=== PATIENT | female | born 1940 | race Two or more races ===

== ENCOUNTER 2016-12-08 20:05 | Emergency (ER) | payer MEDICARE ==
[~2016-12-08] VITALS: Ht 157.5 cm; Wt 63.5 kg
[~2016-12-08 20:05] MED LIST: CHOL10003 PO; CIPR500T94 PO; CYAN10005 PO; HYDR-971 PO; HYDR1TAB12 PO; IBUP200T58 PO; MULT-208 PO; ONDA4TAB7 PO; OXYC-323 PO; PANT40TA5 PO; POTA20TA4 PO; TAMS0.4C97 PO; VITA400C6 PO
[2016-12-08 21:01] LABS: BASO # 0.1 x10^3/uL (0.0-0.2); BASO % 1 % (0-3); EOS % 3 % (0-3); HEMATOCRIT 37.7 % (36.0-47.0); HEMOGLOBIN 12.1 g/dL (12.0-15.5); LYMPH # 2.7 x10^3/uL (1.0-4.8); LYMPH % 40 % (24-48); MEAN CORPUSCULAR HEMOGLOBIN 27 pg (25-35); MEAN CORPUSCULAR HGB CONC 32 g/dL (31-37); MEAN CORPUSCULAR VOLUME 83 fL (79-100); MONO % 8 % (0-9); NEUT % 48 % (31-73); PLATELET COUNT 234 x10^3/uL (140-400); RED BLOOD COUNT 4.55 x10^6/uL (3.50-5.40); RED CELL DISTRIBUTION WIDTH 17.6 % (11.5-14.5); WHITE BLOOD COUNT 6.7 x10^3/uL (4.0-11.0)
[2016-12-08 21:02] LABS: BILIRUBIN,URINE NEGATIVE (NEG); GLUCOSE,URINE NEGATIVE (NEG); NITRITE,URINE NEGATIVE (NEG); PROTEIN,URINE NEGATIVE (NEG-TRACE); UROBILINOGEN,URINE 0.2 mg/dL (0.2 mg/dL)
[2016-12-08 21:09] LABS: BACTERIA,URINE 0 /HPF (0-FEW); RBC,URINE OCC /HPF (0-2); SQUAMOUS EPITHELIAL CELL,UR OCC /LPF
[2016-12-08 21:15] LABS: CALCIUM 9.6 mg/dL (8.5-10.1); CREATININE 0.7 mg/dL (0.6-1.0); GFR 81.6; POTASSIUM 3.5 mmol/L (3.5-5.1)
[2016-12-08 21:21] LABS: ALBUMIN 3.8 g/dL (3.4-5.0); ALBUMIN/GLOBULIN RATIO 0.9 (1.0-1.7); TOTAL BILIRUBIN 0.2 mg/dL (0.2-1.0); TOTAL PROTEIN 8.1 g/dL (6.4-8.2)
[2016-12-08] MEDS ORDERED: IV NORMAL SALINE 1000ML BAG 1,000 ML IV SCH (21:30)
[2016-12-08] MEDS ORDERED: MORPHINE SULFATE 10 MG/ML VIAL. IV ONE (21:30)
[2016-12-08] MEDS ORDERED: ONDANSETRON PF 4 MG/2 ML VIAL. IV ONE (21:30)
--- NOTE | 2016-12-08 23:56 | RAD ---
Examination: CT of the abdomen pelvis without contrast. HISTORY History of right flank pain. COMPARISON 10/03/[address] images of the abdomen pelvis were performed without contrast. Coronal sagittal reformats were performed FINDINGS Minimal bibasilar lung atelectasis. No evidence of free air identified in the abdomen. The evaluation of the solid organs is limited due to lack of IV contrast. The evaluation the bowel is limited due to lack of oral contrast. The visualized non contrasted liver, spleen, adrenals grossly appears unremarkable. Cholecystectomy clips are identified. The stomach is mildly distended. Normal appearing appendix. Feces and gas noted in the colon. Minimal wall thickening of the sigmoid colon with minimal surrounding fat stranding. Multiple colonic diverticula identified. The urinary bladder is moderately distended. No evidence of intrauterine system calculi identified. Mild prominent appearing bilateral extrarenal pelvis. There is mild dilated appearing left renal calices which is similar to prior exam. Moderate aortic atherosclerosis. Moderate degenerative changes identified in the thoracolumbar spine. The calices of the left kidney appears mildly dilated with no evidence of obstructing calculus. IMPRESSION - No evidence of intrarenal collecting system calculi or hydronephrosis identified. Mild dilated appearing left renal calices grossly appears similar to prior exam. - Cholecystectomy changes. - Multiple colonic diverticula. There is mild thickened appearance of the wall of the sigmoid colon could be due to nondistention or mild colitis. Electronically signed by: Shiva Iraheta (Dec 08, 2016 23:55:11)
[2016-12-09] MEDS ORDERED: CEPH-264 PO (00:17)
[2016-12-09] MEDS ORDERED: HYDR-2678 PO (00:17)
--- NOTE | 2016-12-09 00:17 | PHYS DOC ---
Past Medical History Past Medical History: Arthritis, GERD, Kidney Stone Past Surgical History: Appendectomy, Cholecystectomy, Tonsillectomy, Other Additional Past Surgical Histo: exploratory lap, wisdom teeth, L breast biopsy , BI LAT 1ST RIB REMOVAL Alcohol Use: None Drug Use: None Adult General Chief Complaint Chief Complaint: FLANK PAIN HPI HPI Patient is a 76 year old female who presents to the ER today complaining of pain to her left flank region. Patient reports that she had kidney stones in the past however this pain feels different than her kidney stone discomfort. Patient denies any history of hypertension diabetes liver or lung problems. Patient reports that she had her gallbladder and appendix taken out in the past. Patient has any fevers shaking chills nausea vomiting diarrhea. Patient reports she does have slight dysuria but no frequency or urgency. Patient has hematuria chest pain or bowel pain. Patient denies any tobacco alcohol or drugs. Patient reports that she's been tolerating by mouth's well. Patient denies any melena or bright red blood per rectum. Patient denies any exacerbating or relieving factors to this pain. Patient reports the pain is colicky in nature. Patient's physical exam is significant for tenderness to her right lateral flank area. Patient has no evidence of retroperitonitis. Patient's abdomen is soft nondistended no rebound or guarding. Patient does not exhibit any signs or symptoms consistent with an acute surgical abdomen. Patient has no Jones sign. Patient has no tenderness at McBurney's point. He was comfortable in bed. Patient was given analgesia in the ED and feels significantly improved. Patient' s chest x-ray did not reveal any infiltrates or effusions. Patient's CT scan was unremarkable for any stones. Patient's UA was positive for 5-10 WBCs. It's unclear if this is the etiology of her discomfort however given the pain that she is having and the white cells in her urine I think it prudent to initiate antibiotic therapy at this point. Patient was given Rocephin IV in the ED as well as a prescription for Keflex to take for 10 days and is to follow-up with her primary care physician for reevaluation. Patient's heart rate in the ER is running between 65-75. Patient's symptomatology is not consistent with TAD, PE, pneumonia, DE, sepsis, peritonitis. Review of Systems Review of Systems Constitutional: Denies fever or chills [] Eyes: Denies change in visual acuity, redness, or eye pain [] All other review of systems are negative except as documented in the history of present illness portion Current Medications Current Medications Current Medications Medications (Trade) Dose Ordered Sig/Nabila Start Time Stop Time Status Last Admin Dose Admin Morphine Sulfate 5 mg 1X ONCE 12/08/16 21:30 12/08/16 21:31 DC 12/08/16 21:09 5 MG Ondansetron HCl (Zofran) 4 mg 1X ONCE 12/08/16 21:30 12/08/16 21:31 DC 12/08/16 21:08 4 MG Sodium Chloride (Iv Sodium Chloride 0.9% 1000ml Bag) 1,000 ml @ 1,000 mls/hr Q1H 12/08/16 21:30 12/08/16 22:29 DC 12/08/16 21:07 1,000 MLS/HR Allergies Allergies Allergies Coded Allergies Type Severity Reaction Last Updated Verified sulfamethizole Allergy Severe Anaphylaxis 08/02/16 Yes Influenza Virus Vaccines Allergy Intermediate 09/20/16 Yes Iodinated Contrast Media - Oral and Allergy Intermediate soa large infiltrate 08/02/16 Yes Sulfa (Sulfonamide Antibiotics) Allergy Intermediate Rash 09/20/16 Yes hydromorphone Adverse Reaction Intermediate Nausea, Flushed, diaphoretic No influenza virus vaccine, specific Adverse Reaction Intermediate 08/02/16 Yes Physical Exam Physical Exam Constitutional: Well developed, well nourished, no acute distress, non-toxic appearance. [] HENT: Normocephalic, atraumatic, bilateral external ears normal, oropharynx moist, no oral exudates, nose normal. [] Eyes: PERRLA, EOMI, conjunctiva normal, no discharge. [] Neck: Normal range of motion, no tenderness, supple, no stridor. [] Cardiovascular:Heart rate regular rhythm, no murmur [] Lungs & Thorax: Bilateral breath sounds clear to auscultation [] Abdomen: Bowel sounds normal, soft, see above no masses, no pulsatile masses. [ ] Skin: Warm, dry, no erythema, no rash. [] Back: No tenderness, no CVA tenderness. [] Extremities: No tenderness, no cyanosis, no clubbing, ROM intact, no edema. [] Neurologic: Alert and oriented X 3, normal motor function, normal sensory function, no focal deficits noted. [] Psychologic: Affect normal, judgement normal, mood normal. [] Current Patient Data Vital Signs Vital Signs Date Time Temp Pulse Resp B/P Pulse Ox O2 Delivery O2 Flow Rate FiO2 12/08/16 21:09 20 12/08/16 20:45 98.3 101 153/79 98 Room Air 98.3 Lab Values Laboratory Tests Test 12/08/16 20:29 12/08/16 20:51 Urine Collection Type Unknown Urine Color Yellow Urine Clarity Clear Urine pH 6.0 Urine Specific [place] 1.015 Urine Protein Negativemg/dL (NEG-TRACE) Urine Glucose (UA) Negativemg/dL (NEG) Urine Ketones (Stick) Negativemg/dL (NEG) Urine Blood Negative (NEG) Urine Nitrite Negative (NEG) Urine Bilirubin Negative (NEG) Urine Urobilinogen Dipstick 0.2mg/dL (0.2 mg/dL) Urine Leukocyte Esterase Trace (NEG) Urine RBC Occ/HPF (0-2) Urine WBC 5-10/HPF (0-4) Urine Squamous Epithelial Cells Occ/LPF Urine Bacteria 0/HPF (0-FEW) Urine Mucus Mod/LPF White Blood Count 6.7x10^3/uL (4.0-11.0) Red Blood Count 4.55x10^6/uL (3.50-5.40) Hemoglobin 12.1g/dL (12.0-15.5) Hematocrit 37.7% (36.0-47.0) Mean Corpuscular Volume 83fL (79-100) Mean Corpuscular Hemoglobin 27pg (25-35) Mean Corpuscular Hemoglobin Concent 32g/dL (31-37) Red Cell Distribution Width 17.6% (11.5-14.5) H Platelet Count 234x10^3/uL (140-400) Neutrophils (%) (Auto) 48% (31-73) Lymphocytes (%) (Auto) 40% (24-48) Monocytes (%) (Auto) 8% (0-9) Eosinophils (%) (Auto) 3% (0-3) Basophils (%) (Auto) 1% (0-3) Neutrophils # (Auto) 3.2x10^3uL (1.8-7.7) Lymphocytes # (Auto) 2.7x10^3/uL (1.0-4.8) Monocytes # (Auto) 0.5x10^3/uL (0.0-1.1) Eosinophils # (Auto) 0.2x10^3/uL (0.0-0.7) Basophils # (Auto) 0.1x10^3/uL (0.0-0.2) Sodium Level 144mmol/L (136-145) Potassium Level 3.5mmol/L (3.5-5.1) Chloride Level 106mmol/L (98-107) Carbon Dioxide Level 25mmol/L (21-32) Anion Gap 13 (6-14) Blood Urea Nitrogen 17mg/dL (7-20) Creatinine 0.7mg/dL (0.6-1.0) Estimated GFR (Cockcroft-Gault) 81.6 BUN/Creatinine Ratio 24 (6-20) H Glucose Level 134mg/dL (70-99) H Calcium Level 9.6mg/dL (8.5-10.1) Total Bilirubin 0.2mg/dL (0.2-1.0) Aspartate Amino Transferase (AST) 8U/L (15-37) L Alanine Aminotransferase (ALT) 24U/L (14-59) Alkaline Phosphatase 99U/L (46-116) Total Protein 8.1g/dL (6.4-8.2) Albumin 3.8g/dL (3.4-5.0) Albumin/Globulin Ratio 0.9 (1.0-1.7) L Laboratory Tests 12/08/16 20:51 Laboratory Tests 12/08/16 20:51 EKG EKG [] Radiology/Procedures Radiology/Procedures [] Course & Med Decision Making Course & Med Decision Making Pertinent Labs and Imaging studies reviewed. (See chart for details) [] A/P #1 right flank pain. Etiology is unclear however given her positive UA and will initiate therapy for urinary tract infection please see above Dragon Disclaimer Dragon Disclaimer This electronic medical record was generated, in whole or in part, using a voice recognition dictation system. Departure Departure Impression: Primary Impression: Acute pyelonephritis Additional Impression: UTI (urinary tract infection) Disposition: 01 HOME, SELF-CARE Condition: IMPROVED Referrals: BUSHRA RIDER MD (PCP) Patient Instructions: Abdominal Pain (Nonspecific), Urinary Tract Infection Scripts Hydrocodone/Acetaminophen (Lortab 5-325 mg Tablet)1 Each Tablet1 Tab PO PRN Q6HRS PRN PAIN #14 TAB Prov:LAURIE LOZANO MD 12/09/16 Cephalexin (Keflex)500 Mg [id number] Mg PO QID 10 Days Prov:LAURIE LOZANO MD 12/09/16 Problem Qualifiers LAURIE LOZANO MD Dec 09, 2016 00:17
[2016-12-09] MEDS ORDERED: CEFTRIAXONE 1GM IVPB FOR OMNI 50 ML IV ONE ×2 (00:30→01:30)
[2016-12-09 02:00] VITALS: BP 140/84
--- NOTE | 2016-12-09 15:07 | RAD ---
Chest, 2 views, 12/08/2016: History: Right flank pain Comparison is made to a study from 07/08/2014. The heart size and pulmonary vascularity are normal. No pulmonary infiltrates are seen. There is a tiny left upper lobe pulmonary nodule. This was not evident on previous studies, however, that may be due to technical factors. There is no evidence of pleural fluid. Mild spurring is present in the spine. A left shoulder prosthesis has been inserted. Surgical clips are projected over both axillary regions. IMPRESSION: 1. Tiny left upper lobe pulmonary nodule. While this may be a granuloma, follow-up imaging is suggested to exclude a neoplastic etiology. 2. No acute cardiopulmonary abnormality is detected. Note: The findings were called to personnel in the [facility] ER at 3:00 PM on 12/09/2016.
== END 2016-12-09 02:05 | disposition home or self-care (01) ==
LOC: ER 20:05
DX: N10 Acute pyelonephritis (principal); N39.0 Urinary tract infection, site not specified; K21.9 Gastro-esophageal reflux disease without esophagitis; M19.90 Unspecified osteoarthritis, unspecified site; Z87.442 Personal history of urinary calculi; Z88.2 Allergy status to sulfonamides; Z90.49 Acquired absence of other specified parts of digestive tract; Z88.5 Allergy status to narcotic agent; Z88.7 Allergy status to serum and vaccine; Z91.041 Radiographic dye allergy status
CPT/HCPCS: 36415; 71020; 74176; 80053; 81001; 85027; 87086; 96361; 96365; 96366; 96375; 99285; J0690; J2270; J2405; J7030

== ENCOUNTER → 2016-12-17 | Outpatient (CLI) | payer MEDICARE ==
[2016-12-09 02:00] VITALS: BP 140/84
[~2016-12-17] MED LIST changes: +CEPH-264 PO; +HYDR-2678 PO
--- NOTE | 2016-12-17 10:20 | RAD ---
Exam performed: CT chest without contrast. History: Left upper lobe nodule, arm swelling, shortness of air Date of service: 12/17/16. Comparison: 2 views chest from 12/08/16 Technique: Contiguous helical acquisitions are obtained through the chest without IV contrast. Sagittal and coronal reformatted images are obtained and reviewed. Findings: Structures at the thoracic inlet including both lobes of the thyroid gland appear grossly normal. Lack of IV contrast limits evaluation of neck and intrathoracic great vessels, however there is atheromatous calcification of the aorta and mild atelectasis calcification of the coronary arteries. No mediastinal or hilar adenopathy is seen. The heart size is within limits of normal without pericardial effusion. Interrogation of lungs demonstrates no definite infiltrates or nodules. No pleural effusion or pneumothorax is seen. Limited evaluation of the upper abdominal structures is unremarkable. Streak artifacts emanating from left shoulder arthroplasty. Impression: No definite abnormality seen in the CT scan chest. No definite pulmonary nodules or masses identified. PQRS Compliance Statement: One or more of the following individualized dose reduction techniques were utilized for this examination: 1. Automated exposure control 2. Adjustment of the mA and/or kV according to patient size 3. Use of iterative reconstruction technique
== END | disposition home or self-care (01) ==
LOC: CT 07:44
PROVIDERS: ATTEND Nurse Practitioner
DX: R91.1 Solitary pulmonary nodule (principal); J98.11 Atelectasis; I25.10 Atherosclerotic heart disease of native coronary artery without angina pectoris
CPT/HCPCS: 71250

== ENCOUNTER 2017-05-11 12:00 | Emergency (ER) | payer MEDICARE ==
[~2017-05-11] VITALS: Ht 157.5 cm; Wt 66.2 kg
[2017-05-11 12:25] LABS: BILIRUBIN,URINE NEGATIVE (NEG); GLUCOSE,URINE NEGATIVE (NEG); NITRITE,URINE NEGATIVE (NEG); PROTEIN,URINE NEGATIVE (NEG-TRACE); UROBILINOGEN,URINE 0.2 mg/dL (0.2 mg/dL)
[2017-05-11 12:30] LABS: BASO # 0.1 x10^3/uL (0.0-0.2); BASO % 1 % (0-3); EOS % 4 % (0-3); HEMATOCRIT 38.9 % (36.0-47.0); HEMOGLOBIN 12.8 g/dL (12.0-15.5); LYMPH # 2.3 x10^3/uL (1.0-4.8); LYMPH % 29 % (24-48); MEAN CORPUSCULAR HEMOGLOBIN 29 pg (25-35); MEAN CORPUSCULAR HGB CONC 33 g/dL (31-37); MEAN CORPUSCULAR VOLUME 87 fL (79-100); MONO % 9 % (0-9); NEUT % 58 % (31-73); PLATELET COUNT 254 x10^3/uL (140-400); RED BLOOD COUNT 4.46 x10^6/uL (3.50-5.40); RED CELL DISTRIBUTION WIDTH 15.3 % (11.5-14.5); WHITE BLOOD COUNT 8.2 x10^3/uL (4.0-11.0)
[2017-05-11 12:37] LABS: CALCIUM 8.9 mg/dL (8.5-10.1); CREATININE 0.8 mg/dL (0.6-1.0); GFR 69.7; POTASSIUM 3.1 mmol/L (3.5-5.1)
[2017-05-11 12:44] LABS: ALBUMIN 3.5 g/dL (3.4-5.0); DIRECT BILIRUBIN 0.1 mg/dL (0.0-0.2); TOTAL BILIRUBIN 0.5 mg/dL (0.2-1.0); TOTAL PROTEIN 7.9 g/dL (6.4-8.2)
[2017-05-11] MEDS ORDERED: IV NORMAL SALINE 1000ML BAG 1,000 ML IV ONE (12:45)
[2017-05-11 12:49] LABS: BACTERIA,URINE 0 /HPF (0-FEW); RBC,URINE 0 /HPF (0-2); SQUAMOUS EPITHELIAL CELL,UR FEW /LPF
[2017-05-11] MEDS ORDERED: DIPHTH,PERTUSS(ACELL),TET TOX 0.5 ML DISP.SYRIN. VAX IM ONE (13:00)
[2017-05-11] MEDS ORDERED: POTASSIUM CHLO10 MEQ PO (13:20)
[2017-05-11] MEDS ORDERED: LOPE2CAP PO (13:20)
--- NOTE | 2017-05-11 13:20 | PHYS DOC ---
Past Medical History Past Medical History: Arthritis, GERD, Kidney Stone Additional Past Medical Histor: osteoporosis Past Surgical History: Appendectomy, Cholecystectomy, Tonsillectomy, Other Additional Past Surgical Histo: exploratory lap, wisdom teeth, L breast biopsy , BI LAT 1ST RIB REMOVAL Alcohol Use: None Drug Use: None Adult General Chief Complaint Chief Complaint: DIARRHEA HPI HPI 77-year-old female presenting to the emergency department today with pain in the groin and diarrhea for the past 4 days. She reports about 10-11 stools per day that is loose and nonbloody. She denies nausea or vomiting. She has a history of a hernia and reports that she has pain intermittently from her hernia with mild extrusion of the hernia which is easily placed back in the abdominal wall. Currently her pain is 1 out of 10. Location GI tract. Duration intermittent. No alleviating or exacerbating factors present. Review of systems is negative for chest pain shortness of breath syncope headache fevers or chills. All other review of systems is negative unless otherwise noted in history of present illness. ED course: 77-year-old female presenting to the emergency department with watery diarrhea. The patient was afebrile with normal heart rate here in the emergency department. Abdomen was soft and nontender. 1 L of IV fluids was given and blood work was obtained. Low potassium was noted and the patient was discharged home with oral potassium supplementation. I also prescribed loperamide as needed for diarrhea for the next day or 2. Follow-up with doctor in 2-3 days. The patient was then discharged home in stable condition to follow up with their primary care physician over the next 2-3 days. They were to return if their symptoms worsened or if they were concerned for any reason. Face -to-face discharge instructions and return precautions were given. Patient's questions were answered to their satisfaction. Patient is comfortable plan. Review of Systems Review of Systems SEE ABOVE. Current Medications Current Medications Current Medications Medications (Trade) Dose Ordered Sig/Nabila Start Time Stop Time Status Last Admin Dose Admin Diphtheria/ Tetanus/Acell Pertussis (Boostrix) 0.5 ml ONCE ONCE 05/11/17 13:00 05/11/17 13:00 DC Sodium Chloride 1,000 ml @ 1,000 mls/hr 1X ONCE 05/11/17 12:45 05/11/17 13:44 05/11/17 12:41 1,000 MLS/HR Allergies Allergies Allergies Coded Allergies Type Severity Reaction Last Updated Verified sulfamethizole Allergy Severe Anaphylaxis 08/02/16 Yes Influenza Virus Vaccines Allergy Intermediate 09/20/16 Yes Iodinated Contrast- Oral and IV Dye Allergy Intermediate soa large infiltrate 08/02/16 Yes Sulfa (Sulfonamide Antibiotics) Allergy Intermediate Rash 09/20/16 Yes hydromorphone Adverse Reaction Intermediate Nausea, Flushed, diaphoretic No influenza virus vaccine, specific Adverse Reaction Intermediate 08/02/16 Yes Physical Exam Physical Exam Constitutional: Well developed, well nourished, no acute distress, non-toxic appearance. [] HENT: Normocephalic, atraumatic, bilateral external ears normal, oropharynx moist, no oral exudates, nose normal. [] Eyes: PERRLA, EOMI, conjunctiva normal, no discharge. [] Neck: Normal range of motion, no tenderness, supple, no stridor. [] Cardiovascular:Heart rate regular rhythm, no murmur [] Lungs & Thorax: Bilateral breath sounds clear to auscultation [] Abdomen: Bowel sounds normal, soft, no tenderness, no masses, no pulsatile masses. [] Skin: Warm, dry, no erythema, no rash. [] Back: No tenderness, no CVA tenderness. [] Extremities: No tenderness, no cyanosis, no clubbing, ROM intact, no edema. [] Neurologic: Alert and oriented X 3, normal motor function, normal sensory function, no focal deficits noted. [] Psychologic: Affect normal, judgement normal, mood normal. [] Current Patient Data Vital Signs Vital Signs Date Time Temp Pulse Resp B/P (MAP) Pulse Ox O2 Delivery O2 Flow Rate FiO2 05/11/17 12:20 98.9 93 16 148/83 (104) 97 Room Air 98.9 Lab Values Laboratory Tests Test 05/11/17 12:15 05/11/17 12:20 Urine Collection Type Unknown Urine Color Yellow Urine Clarity Clear Urine pH 6.0 Urine Specific [place] 1.015 Urine Protein Negative mg/dL (NEG-TRACE) Urine Glucose (UA) Negative mg/dL (NEG) Urine Ketones (Stick) Negative mg/dL (NEG) Urine Blood Negative (NEG) Urine Nitrite Negative (NEG) Urine Bilirubin Negative (NEG) Urine Urobilinogen Dipstick 0.2 mg/dL (0.2 mg/dL) Urine Leukocyte Esterase Trace (NEG) Urine RBC 0 /HPF (0-2) Urine WBC 5-10 /HPF (0-4) Urine Squamous Epithelial Cells Few /LPF Urine Transitional Epithelial Cells Few /LPF Urine Renal Epithelial Cells Occ /LPF Urine Bacteria 0 /HPF (0-FEW) Urine Mucus Slight /LPF White Blood Count 8.2 x10^3/uL (4.0-11.0) Red Blood Count 4.46 x10^6/uL (3.50-5.40) Hemoglobin 12.8 g/dL (12.0-15.5) Hematocrit 38.9 % (36.0-47.0) Mean Corpuscular Volume 87 fL (79-100) Mean Corpuscular Hemoglobin 29 pg (25-35) Mean Corpuscular Hemoglobin Concent 33 g/dL (31-37) Red Cell Distribution Width 15.3 % (11.5-14.5) H Platelet Count 254 x10^3/uL (140-400) Neutrophils (%) (Auto) 58 % (31-73) Lymphocytes (%) (Auto) 29 % (24-48) Monocytes (%) (Auto) 9 % (0-9) Eosinophils (%) (Auto) 4 % (0-3) H Basophils (%) (Auto) 1 % (0-3) Neutrophils # (Auto) 4.7 x10^3uL (1.8-7.7) Lymphocytes # (Auto) 2.3 x10^3/uL (1.0-4.8) Monocytes # (Auto) 0.7 x10^3/uL (0.0-1.1) Eosinophils # (Auto) 0.3 x10^3/uL (0.0-0.7) Basophils # (Auto) 0.1 x10^3/uL (0.0-0.2) Sodium Level 140 mmol/L (136-145) Potassium Level 3.1 mmol/L (3.5-5.1) L Chloride Level 104 mmol/L (98-107) Carbon Dioxide Level 26 mmol/L (21-32) Anion Gap 10 (6-14) Blood Urea Nitrogen 13 mg/dL (7-20) Creatinine 0.8 mg/dL (0.6-1.0) Estimated GFR (Cockcroft-Gault) 69.7 Glucose Level 146 mg/dL (70-99) H Calcium Level 8.9 mg/dL (8.5-10.1) Total Bilirubin 0.5 mg/dL (0.2-1.0) Direct Bilirubin 0.1 mg/dL (0.0-0.2) Aspartate Amino Transferase (AST) 29 U/L (15-37) Alanine Aminotransferase (ALT) 50 U/L (14-59) Alkaline Phosphatase 90 U/L (46-116) Total Protein 7.9 g/dL (6.4-8.2) Albumin 3.5 g/dL (3.4-5.0) Laboratory Tests 05/11/17 12:20 Laboratory Tests 05/11/17 12:20 EKG EKG [] Radiology/Procedures Radiology/Procedures [] Course & Med Decision Making Course & Med Decision Making Pertinent Labs and Imaging studies reviewed. (See chart for details) [] Dragon Disclaimer Dragon Disclaimer This electronic medical record was generated, in whole or in part, using a voice recognition dictation system. Departure Departure Impression: Primary Impression: Diarrhea Additional Impression: Abdominal pain Disposition: HOME, SELF-CARE Condition: STABLE Referrals: BUSHRA RIDER MD (PCP) Patient Instructions: Diarrhea Additional Instructions: Thank you for allowing us to participate in your care today. Followup with your primary care physician in 3 days if your symptoms do not improve. Call your Primary Doctor tomorrow and inform them of your visit today. If you do not have a primary care provider you can ask for a list of our primary care providers. Return to the emergency department you have any new or concerning findings. This should be evaluated by the primary care physician and any necessary consulting services for continued management within a few days after discharge. Return to emergency room if you have any new or concerning symptoms including but not limited to fever, chills, nausea, vomiting, intractable pain, any new rashes, chest pain, shortness of air, uncontrolled bleeding, difficulty breathing, and/or vision loss. You may have been prescribed medication that can change in your level of thinking and ability to operate machinery. These medications include hydrocodone and Ativan. Also, Benadryl has been known to do this as well. Be sure to check with your pharmacist and ask if the medications you've prescribed can affect your level of consciousness. I recommend not operating heavy machinery or driving while on medication such as these. Scripts Potassium Chloride (POTASSIUM CHLORIDE) 10 Meq Capsule.er 20 MEQ PO DAILY for 5 Days, #5 TAB.SR Prov: BENITA BLACKMAN MD 05/11/17 Loperamide Hcl (LOPERAMIDE) 2 Mg Capsule 2 MG PO PRN BID Y for DIARRHEA, #5 Be careful, this medication may cause you to be tired or drowsy. Do not drive on this medication. It may cause you to be tired as well. Prov: BENITA BLACKMAN MD 05/11/17 Problem Qualifiers BENITA BLACKMAN MD May 11, 2017 13:20
[2017-05-11 14:00] VITALS: BP 146/64
== END 2017-05-11 14:10 | disposition home or self-care (01) ==
LOC: ER 12:00
DX: R19.7 Diarrhea, unspecified (principal); R10.30 Lower abdominal pain, unspecified; M19.90 Unspecified osteoarthritis, unspecified site; K21.9 Gastro-esophageal reflux disease without esophagitis; M81.0 Age-related osteoporosis without current pathological fracture; E87.6 Hypokalemia; Z87.442 Personal history of urinary calculi; Z88.2 Allergy status to sulfonamides; Z90.49 Acquired absence of other specified parts of digestive tract; Z88.7 Allergy status to serum and vaccine; Z91.041 Radiographic dye allergy status; Z88.5 Allergy status to narcotic agent
CPT/HCPCS: 36415; 80048; 80076; 81001; 85027; 87086; 96360; 99284; J7030

== ENCOUNTER → 2017-06-25 | Outpatient (CLI) | payer MEDICARE ==
[~2017-06-25] MED LIST changes: +LOPE2CAP PO; +POTASSIUM CHLO10 MEQ PO
--- NOTE | 2017-06-25 11:26 | RAD ---
Indication right lower quadrant pain. Chronic for approximately 4 months. Axial images through the abdomen and pelvis were obtained. Note is made of a previous examination December 08, 2016. Oral contrast was administered. IV contrast was not. The lung bases are clear. There is a small ventral abdominal wall hernia appearing uncomplicated and containing fat. The liver and spleen appear unremarkable. Clips are noted in the gallbladder fossa. No adrenal pathology is seen. There are parapelvic cysts associated with both kidneys left greater than right similar to the previous exam. No pancreatic pathology is seen. Acute finding in the abdomen is is not apparent. In the pelvis occasional diverticula are seen associated with the large bowel. Active inflammation is not seen. An acute finding in the pelvis is not apparent. Degenerative changes are noted in the lumbar spine most pronounced at L3-4. IMPRESSION: No acute finding seen in the abdomen or pelvis PQRS Compliance Statement: One or more of the following individualized dose reduction techniques were utilized for this examination: 1. Automated exposure control 2. Adjustment of the mA and/or kV according to patient size 3. Use of iterative reconstruction technique
== END | disposition home or self-care (01) ==
LOC: CT 08:19
PROVIDERS: ATTEND Internal Medicine
DX: K57.20 Diverticulitis of large intestine with perforation and abscess without bleeding (principal)
CPT/HCPCS: 74176

== ENCOUNTER → 2018-04-27 | Outpatient (CLI) | payer MEDICARE | END | disposition home or self-care (01) | LOC: MAMMO 08:01 | DX: Z12.31 Encounter for screening mammogram for malignant neoplasm of breast (principal) | CPT/HCPCS: 77063; 77067 ==

== ENCOUNTER → 2019-08-21 | Outpatient (CLI) | payer MEDICARE ==
[~2019-08-21] MED LIST changes: +CYAN-25 PO; -CYAN10005 PO; +HYDR-3164 PO; -HYDR-971 PO; -HYDR1TAB12 PO; +HYDR1TAB13 PO; -OXYC-323 PO; +OXYC1TAB15 PO; -PANT40TA5 PO; +PANT40TA77 PO; +POTA10TA12 PO; -POTASSIUM CHLO10 MEQ PO
--- NOTE | 2019-08-23 13:26 | RAD ---
DATE: 08/21/2019 EXAM: MAMMO MARTITA SCREENING BILATERAL HISTORY: Asymptomatic screening mammogram COMPARISON: Prior mammogram from 06/08/2015 and 04/27/2018 This study was interpreted with the benefit of Computerized Aided Detection (CAD). Breast Density: SCATTERED The breast parenchyma shows scattered fibroglandular densities. Breast parenchyma level B. FINDINGS: Bilateral CC and MLO views of the breasts were performed. Bilateral breast tomosynthesis was performed in CC and MLO projections. Right breast: There are no suspicious microcalcifications, masses or areas of architectural distortion. Left breast: There are no suspicious microcalcifications, masses or areas of architectural distortion. Findings are stable from prior mammogram. IMPRESSION: Negative bilateral mammogram. BI-RADS CATEGORY: 1 NEGATIVE RECOMMENDED FOLLOW-UP: 12M 12 MONTH FOLLOW-UP PQRS compliance statement: Patient information was entered into a reminder system with a target due date 08/21/2020 for the next mammogram. Mammography is a sensitive method for finding small breast cancers, but it does not detect them all and is not a substitute for careful clinical examination. A negative mammogram does not negate a clinically suspicious finding and should not result in delay in biopsying a clinically suspicious abnormality. "Our facility is accredited by the [employer] Mammography Program."
== END | disposition home or self-care (01) ==
LOC: MAMMO 09:18
PROVIDERS: ATTEND Family Medicine
DX: Z12.31 Encounter for screening mammogram for malignant neoplasm of breast (principal); N64.89 Other specified disorders of breast
CPT/HCPCS: 77063; 77067

== ENCOUNTER → 2020-04-26 | Outpatient (CLI) | payer MEDICARE | END | disposition home or self-care (01) | LOC: LAB 12:25 | PROVIDERS: ATTEND Ophthalmology | DX: Z11.59 Encounter for screening for other viral diseases (principal) | CPT/HCPCS: 36415; U0003 ==

== ENCOUNTER → 2020-05-01 | Day surgery (SDC) | payer MEDICARE ==
[~2020-05-01] VITALS: Ht 157.5 cm; Wt 63.0 kg
[~2020-05-01] MED LIST changes: +BALANCED SALT IRRIG OPHTH SOLN 15 ML BOTTLE. ONE; +CHONDROIT-SOD-HYALURONATE KIT. ONE; +CHONDROITIN-SOD-HYALURONATE 0.5 ML DISP.SYRIN. ONE; +CIPROFLOXACIN 0.3% OPHTH SOLUTION 5ML BOTTLE. OD ONE; +HYDROmorphone 2 MG/ML VIAL IV PRN; +IV RINGERS,LACTATED 1000ML 1,000 ML IV SCH; +LIDOCAINE 1% PF 2 ML VIAL. ID PRN; +LIDOCAINE 1%/PHENYLEPH 1.5% PF OPHTH 1 ML VIAL. ONE; +LIDOCAINE 2% JELLY 6ML IN APPLICATOR. OD ONE; +LIDOCAINE 2% JELLY 6ML IN APPLICATOR. ONE; +MIDAZOLAM HCL/PF 2 MG/2 ML VIAL. ONE; +MORPHINE SULFATE 2 MG/ML VIAL. IV PRN; +NEO/POLYMYX/DEXAMETH OPHTH OINTMENT 3.5GM TUBE. ONE; +ONDANSETRON PF 4 MG/2 ML VIAL. IV PRN; +PROCHLORPERAZINE 10 MG/2 ML VIAL. IV PRN; +PROPARACAINE 0.5% OPHTH SOLUTION 15ML BOTTLE. OD ONE; +fentaNYL PF VIAL 100 MCG/2 ML VIAL IV PRN
[2020-05-01] MEDS: CYCLOPENTOLATE 1% OPHTH SOLUTION 2ML BOTTLE. OD SCH ×3 (07:12→07:22)
[2020-05-01] MEDS: PHENYLEPHRINE 10% OPHTH SOLUTION 5ML BOTTLE. OD SCH ×3 (07:12→07:22)
[2020-05-01 09:57] VITALS: BP 186/80
--- NOTE | 2020-05-01 10:16 | OP ---
DATE OF SURGERY: 05/01/2020 PREOPERATIVE DIAGNOSIS: Cataract of the right eye. PROCEDURE: Phacoemulsification with posterior chamber intraocular lens implantation of the right eye. INDICATION: Painless progressive visual loss and visually significant cataract and difficulty reading. SURGEON: Keri Castro M.D. ANESTHESIA: Topical with monitored anesthesia care. DESCRIPTION OF PROCEDURE: The right eye was prepped with Betadine in the usual sterile fashion and draped. A paracentesis was performed followed by instillation of preservative-free phenylephrine and lidocaine, a premixed. A temporal clear corneal incision was made and a viscoelastic injected in the anterior chamber. A capsulorrhexis was performed followed by hydrodissection. The phacoemulsification handpiece was used to remove the nucleus in a modified stop and chop fashion. The I/A handpiece was used to remove the remainder of the cortex. An [place] model [id number] with a power of 22.5 diopters was placed into the capsular bag. The I/A handpiece was used to remove the viscoelastic and the wounds were hydrated and no leak was noted. Maxitrol was placed on the eye and the eye shielded and the patient was sent to the recovery room uneventfully. KERI CASTRO MD DR: UBALDO/cirilo JOB#: [id number] / [id number]
== END ==
LOC: SURG 06:30
PROVIDERS: ATTEND Ophthalmology
DX: H25.11 Age-related nuclear cataract, right eye (principal)
CPT/HCPCS: 66984; C1780; J0171; J0690; J1580; J2250; J3490

== ENCOUNTER 2020-05-11 06:42 | Day surgery (SDC) | payer MEDICARE ==
[~2020-05-11] VITALS: Ht 157.5 cm; Wt 63.5 kg
[~2020-05-11 06:42] MED LIST changes: -BALANCED SALT IRRIG OPHTH SOLN 15 ML BOTTLE. ONE; -CHONDROIT-SOD-HYALURONATE KIT. ONE; -CHONDROITIN-SOD-HYALURONATE 0.5 ML DISP.SYRIN. ONE; -CIPROFLOXACIN 0.3% OPHTH SOLUTION 5ML BOTTLE. OD ONE; +CIPROFLOXACIN 0.3% OPHTH SOLUTION 5ML BOTTLE. OS ONE; -HYDROmorphone 2 MG/ML VIAL IV PRN; -IV RINGERS,LACTATED 1000ML 1,000 ML IV SCH; -LIDOCAINE 1% PF 2 ML VIAL. ID PRN; -LIDOCAINE 1%/PHENYLEPH 1.5% PF OPHTH 1 ML VIAL. ONE; -LIDOCAINE 2% JELLY 6ML IN APPLICATOR. OD ONE; -LIDOCAINE 2% JELLY 6ML IN APPLICATOR. ONE; +LIDOCAINE 2% JELLY 6ML IN APPLICATOR. OS ONE; -MIDAZOLAM HCL/PF 2 MG/2 ML VIAL. ONE; -MORPHINE SULFATE 2 MG/ML VIAL. IV PRN; -NEO/POLYMYX/DEXAMETH OPHTH OINTMENT 3.5GM TUBE. ONE; -ONDANSETRON PF 4 MG/2 ML VIAL. IV PRN; -PROCHLORPERAZINE 10 MG/2 ML VIAL. IV PRN; -PROPARACAINE 0.5% OPHTH SOLUTION 15ML BOTTLE. OD ONE; +PROPARACAINE 0.5% OPHTH SOLUTION 15ML BOTTLE. OS ONE; -fentaNYL PF VIAL 100 MCG/2 ML VIAL IV PRN
[2020-05-11] MEDS ORDERED: BALANCED SALT IRRIG OPHTH SOLN 15 ML BOTTLE. ONE (07:09)
[2020-05-11] MEDS ORDERED: NEO/POLYMYX/DEXAMETH OPHTH OINTMENT 3.5GM TUBE. ONE (07:09)
[2020-05-11] MEDS ORDERED: CHONDROITIN-SOD-HYALURONATE 0.5 ML DISP.SYRIN. ONE (07:10)
[2020-05-11] MEDS ORDERED: CHONDROIT-SOD-HYALURONATE KIT. ONE (07:10)
[2020-05-11] MEDS ORDERED: LIDOCAINE 2% JELLY 6ML IN APPLICATOR. ONE (07:10)
[2020-05-11] MEDS: PHENYLEPHRINE 10% OPHTH SOLUTION 5ML BOTTLE. OS SCH ×3 (07:28→07:37)
[2020-05-11] MEDS: CYCLOPENTOLATE 1% OPHTH SOLUTION 2ML BOTTLE. OS SCH ×3 (07:43→07:53)
[2020-05-11] MEDS ORDERED: IV RINGERS,LACTATED 1000ML 1,000 ML IV SCH (08:00)
[2020-05-11] MEDS ORDERED: LIDOCAINE 1% PF 2 ML VIAL. ONE (08:50)
[2020-05-11] MEDS ORDERED: MIDAZOLAM HCL/PF 2 MG/2 ML VIAL. ONE (08:51)
[2020-05-11 09:33] VITALS: BP 176/78
--- NOTE | 2020-05-11 09:43 | OP ---
DATE OF SURGERY: 05/11/2020 PREOPERATIVE DIAGNOSIS: Cataract of the left eye. PROCEDURE: Phacoemulsification with posterior chamber intraocular lens implantation of the left eye. INDICATION: Painless progressive visual loss and visually significant cataract and difficulty reading and driving. SURGEON: Keri Castro MD ANESTHESIA: Topical with monitored anesthesia care. DESCRIPTION OF PROCEDURE: The left eye was prepped with Betadine in the usual sterile fashion and draped. A paracentesis was performed followed by instillation of 1% preservative-free lidocaine. A temporal clear corneal incision was made followed by instillation of viscoelastic. A capsulorrhexis was performed followed by hydrodissection. The phacoemulsification handpiece was used to remove the nucleus in a modified stop and chop fashion. The I/A handpiece was used to remove the cortex. Viscoelastic was injected in the eye and an [place] model [id number] with a power of 22.5 diopters was placed into the capsular bag. Balanced salt solution was used to hydrate the corneal wounds and the viscoelastic evacuated with the I/A handpiece. Once no leak was noted, Maxitrol was placed on the eye and the eye shielded and the patient was sent to the recovery room uneventfully. KEIR CASTRO MD DR: UBALDO/cirilo JOB#: [id number] / [id number]
== END 2020-05-11 10:09 | disposition home or self-care (01) ==
LOC: SURG 06:42
PROVIDERS: ATTEND Ophthalmology
DX: H25.12 Age-related nuclear cataract, left eye (principal); H26.8 Other specified cataract; H54.62 Unqualified visual loss, left eye, normal vision right eye; K21.9 Gastro-esophageal reflux disease without esophagitis; Z88.2 Allergy status to sulfonamides; Z88.8 Allergy status to other drugs, medicaments and biological substances; Z79.899 Other long term (current) drug therapy; Z83.3 Family history of diabetes mellitus
CPT/HCPCS: 66984; C1780; J0171; J0690; J1580; J2250; J3490

== ENCOUNTER → 2021-04-04 | Outpatient (CLI) | payer MEDICARE ==
[~2021-04-04] MED LIST changes: -CIPROFLOXACIN 0.3% OPHTH SOLUTION 5ML BOTTLE. OS ONE; -LIDOCAINE 2% JELLY 6ML IN APPLICATOR. OS ONE; -PROPARACAINE 0.5% OPHTH SOLUTION 15ML BOTTLE. OS ONE; +VITA-47 PO; -VITA400C6 PO
--- NOTE | 2021-04-04 09:22 | RAD ---
EXAM: Bilateral screening mammogram. HISTORY: 81-year-old female presents for screening mammography. TECHNIQUE: Full-field digital craniocaudal and mediolateral oblique views of both breasts are obtaine d for evaluation. Computer aided detection was applied. COMPARISON: 08/21/2019 BREAST PARENCHYMAL DENSITY: Level B - Scattered fibroglandular densities. FINDINGS: There is no new suspicious mass, microcalcification or region of architectural distortion. There are stable right axillary tail lymph nodes. There are stable surgical clips within the left axi lla. IMPRESSION: BI-RADS Category 2: Benign finding(s). RECOMMENDATION: Annual mammography is recommended. If your mammogram demonstrates that you have dense breast tissue, which could hide abnormalities, and if you have other risk factors for breast cancer that have been identified, you might benefit from s upplemental screening tests that may be suggested by your ordering physician. Dense breast tissue, i n and of itself, is a relatively common condition. This information is not provided to cause undue c oncern, but rather to raise your awareness and to promote discussion with your physician regarding th e presence of other risk factors, in addition to dense breast tissue. A report of your mammography re sults will be sent to you and your physician. You should contact your physician if you have any ques tions or concerns regarding this report. Mammography is a sensitive method for finding small breast cancers, but it does not detect them all a nd is not a substitute for careful clinical examination. A negative mammogram does not negate a clin ically suspicious finding and should not result in delay in biopsying a clinically suspicious abnorma lity. PQRS compliance statement - Patient information was entered into a reminder system with a target due date for the next mammogram. "Our facility is accredited by the [employer] Mamm[employer]." Electronically signed by: Ainsley Stuart MD (04/04/2021 9:20 AM) [id number]
== END ==
LOC: MAMMO 09:54
PROVIDERS: ATTEND Family Medicine
DX: Z12.31 Encounter for screening mammogram for malignant neoplasm of breast (principal)
CPT/HCPCS: 77067

== ENCOUNTER → 2021-10-09 | Outpatient (CLI) | payer MEDICARE ==
[~2021-10-09] MED LIST changes: +POTA-121 PO; -POTA20TA4 PO
--- NOTE | 2021-10-09 10:00 | EKG ---
[facility] [address] [place] [address] Test Date: 2021-10-09 Test Time: 09:12:15 Pat Name: JENNY ROBLES Department: Patient ID: [id number] Room: Gender: F Rehab Trainer: [facility] : 1940 Requested By: BUSHRA RIDER Order Number: [id number] Reading MD: Jose Butler Measurements Intervals [place] Rate: 73 P: 51 [place]: 174 QRS: 22 QRSD: 86 T: 51 QT: 378 QTc: 420 Interpretive Statements SINUS RHYTHM SMALL INFERIOR Q WAVE IN LEADE III Electronically Signed On 10-10-2021 13:29:56 SHIP MATE by Jose Butler
== END ==
LOC: EKG 08:46
PROVIDERS: ATTEND Family Medicine
DX: Z01.818 Encounter for other preprocedural examination (principal)
CPT/HCPCS: 93005